=== PATIENT | male | born 2000 | race Caucasian/White ===

== ENCOUNTER 2021-07-06 21:42 | Observation (INO) | payer OTHER ==
[~2021-07-06] VITALS: Ht 175.3 cm; Wt 141.5 kg
[2021-07-06 22:39] LABS: HEMOGLOBIN 13.9 gm/dl (14.0-17.5); RED BLOOD COUNT 5.1 M/UL (4.20-5.50); WHITE BLOOD COUNT 11.1 K/UL (4.5-11.0)
[2021-07-06 23:17] LABS: BUN/CREATININE RATIO 15 (0-10)
[2021-07-07] MEDS ORDERED: ALLERGY SHOT SQ (09:42)
[2021-07-07] MEDS ORDERED: COLACE100 MG PO (15:26)
[2021-07-07] MEDS ORDERED: PROTONIX 40 MG40 M1 PO (15:54)
[2021-07-07] MEDS ORDERED: IBUPROFEN600 MG PO (16:23)
[2021-07-07] MEDS ORDERED: LOPRESSOR 25 MG25 MG PO (16:27)
== END 2021-07-07 18:08 | disposition home or self-care (01) ==
LOC: ER1 21:42 → CDU 07-07 06:22 → MED SURG 4 07-07 14:37
PROVIDERS: Nurse Practitioner; Student in an Organized Health Care Education/Training Program; ADMIT Internal Medicine
DX: R07.89 Other chest pain (principal); I47.1 Supraventricular tachycardia; R19.7 Diarrhea, unspecified; K56.41 Fecal impaction; K21.9 Gastro-esophageal reflux disease without esophagitis; K76.0 Fatty (change of) liver, not elsewhere classified; E66.9 Obesity, unspecified; Z68.42 Body mass index [BMI] 45.0-49.9, adult; Z20.822 Contact with and (suspected) exposure to COVID-19; Z88.0 Allergy status to penicillin
CPT/HCPCS: ECHO; 71045; 80053; 80307; 81001; 82550; 82553; 83874; 84439; 84443; 84484; 85025; 85379; 85652; 86140; 93005; 93306; 99285; C9113; G0378; J1885; J7030; Q9967; U0002